=== PATIENT | female | born 1985 | race Caucasian/White ===

== ENCOUNTER 2024-12-14 04:27 | Emergency (ER) | payer OTHER, SELFPAY ==
[2024-12-14 04:28] VITALS: BP 94/76
[2024-12-14 04:53] LABS: % Basophils 0.1 % (0-2); % Eosinophils 1.1 % (0-6); % Immature Granulocytes 0.4 % (0-0.5); % Monocytes 5.1 % (1.7-9.3); % Neutrophils 77.3 % (42.2-75.2); Absolute Eosinophils 0.1 10^3/uL (0-0.7); Absolute Lymphocytes 1.4 10^3/uL (1.2-3.4); Absolute Monocytes 0.4 10^3/uL (0.1-0.6); Absolute Neutrophils 6.6 10^3/uL (1.4-6.5); Hematocrit 38.5 % (37.0-47.0); Hemoglobin 13.3 g/dL (12.0-16.0); Mean Corp Hgb Conc. 34.5 g/dL (33.0-37.0); Mean Corpuscular Hgb 32.6 pg (27.0-31.0); Mean Corpuscular Volume 94.4 fL (81.0-99.0); Mean Platelet Volume 9.8 fL (7.4-10.4); Nucleated Red Blood Cells % 0 %; Platelet Count 244 10^3/uL (130-400); Red Blood Cell Count 4.08 10^6/uL (4.20-5.40); Red Cell Dist. Width 12.6 % (11.5-14.5); White Blood Cell Count 8.5 10^3/uL (4.8-10.8)
[2024-12-14 05:10] LABS: HCG, Serum Qualitative Screen Negative
[2024-12-14 05:18] LABS: ALT (SGPT) 16 U/L (0-35); AST (SGOT) 20 U/L (14-36); Alkaline Phosphatase 42 U/L (38-126); Blood Urea Nitrogen 5 mg/dl (7-17); Calcium 9.7 mg/dl (8.4-10.2); Carbon Dioxide 26 mmol/L (22-30); Chloride 102 mmol/L (98-107); Glucose 131 mg/dl (70-99); Lipase 34 U/L (23-300); Potassium 4.1 mmol/L (3.5-5.1); Sodium 134 mmol/L (135-145); Total Bilirubin 1.2 mg/dl (0.2-1.3); Total Protein 6.8 g/dl (6.3-8.2); eGFR > 60.00
[2024-12-14 05:54] VITALS: BP 109/74
[2024-12-14 06:00] VITALS: BMI 22.8
--- NOTE | 2024-12-14 06:11 | EDRN ---
Pt has had 24 hours of constant abdominal pain associated with nausea and chills. Pt says she tried to make herself vomit but nothing came up. Pt had a small BM in past 24 hours, no diarrhea. Pt denies cp, sob, fever/cough, ill contacts, urinary
symptoms, weakness, dizziness, Pt took Tums couple times and says it did not help her pain.
[2024-12-14 06:23] LABS: Urine Albumin Negative (Neg - Trace); Urine Bilirubin Negative (Negative); Urine Character Clear (Clear); Urine Color Yellow; Urine Glucose Negative (Negative); Urine Ketone Negative (Negative); Urine Leukocyte 1+ (Negative); Urine Nitrite Negative (Negative); Urine Occult Blood Negative (Negative); Urine Specific Gravity 1.005 (<1.030); Urine Urobilinogen Negative (Neg - 1+); Urine pH 6.5 (5.0-9.0)
[2024-12-14 06:37] LABS: Urine Red Blood Cell 0-2 /HPF (0-2); Urine Squamous Cell 16-20 /LPF (Few)
[2024-12-14 06:38] LABS: Urine White Cell 0-2 /HPF (0-5)
--- NOTE | 2024-12-14 07:30 | ED.GENMED ---
History of Present Illness
General
Chief Complaint: Abdominal Pain
Source: patient
Time Seen by Provider: 12/14/24 07:06
History of Present Illness
History of Present Illness:
39-year-old female with a history of interstitial cystitis presenting to the emergency department for evaluation of generalized abdominal discomfort that started around 5 AM yesterday, constant, sharp burning sensation, nonradiating, unrelieved with
Tums. Patient states symptoms are associated with mild nausea but no vomiting or bowel changes. Patient states she has never had symptoms like this before. She notes that the pain is very different than her typical interstitial cystitis flares.
She denies any fevers, chills, rigors or any other symptoms. Surgical history was noncontributory. Patient states she is unsure of her last menstrual period as she has an IUD but does note that she had very faint spotting 2 days ago which is a
little bit abnormal for her. No other concerns presently. Patient did not take anything yet this morning for her symptoms.
Past History
Past History
ED Past Medical History: Other (Interstitial cystitis)
ED Past Surgical History: Other
Social History
Tobacco: Non-smoker
Alcohol: Occasional
Drug: None
Personal:
Living: with family
Review of Systems
Review of Systems
All Other Systems: ROS reviewed and negative except as documented in HPI and ROS
Phy Exam
Physical Exam
Physical Exam:
GENERAL: Alert , in no apparent distress but does look somewhat uncomfortable
EYE: clear conjunctiva b/l
HEAD: NCAT
ENT: mmm.
CARDIAC: Regular rate and rhythm .
LUNGS: Clear breath sounds bilaterally, no acute respiratory distress, no wheezes/rales/rhonchi
ABDOMEN: Soft, without focal tenderness, no r/g, no cvat, negative Mccurdy sign, no tenderness at McBurney's point
NEUROLOGICAL: Alert and oriented
SKIN: Warm and dry, skin intact.
MUSCULOSKELETAL: well perfused.
PSYCH: Normal and appropriate interaction.
Scores
Heart Failure Risk
Heart Failure Risk Score: Not Applicable
Heart Score for Chest Pain Patients
STEMI patient?: Not applicable
Withdrawal Assessment of Alcohol
Withdrawal Assessment Completed?: Not applicable
Course
Orders/Labs/Results
Orders:
Orders
12/14/24 04:33
Test Result ONCE
12/14/24 04:45
Complete Blood Count/With Diff Urgent
Comprehensive Metabolic Panel Urgent
HCG, Serum Qualitative Screen Urgent
Lipase Urgent
12/14/24 06:09
Urinalysis Reflex To Culture Urgent
Date Specimen was Collected: 12/14/24
Time Specimen was Collected: 06:06
Urine Microscopic Reflex Cult Urgent
Urine Culture Urgent
ABA Source: U
Specimen Description:
Date Specimen was Collected: 12/14/24
Time Specimen was Collected: 06:06
12/14/24 07:23
Iohexol [Omnipaque] See Protocol PO NOW STA
Ketorolac [Toradol] 30 mg IV NOW STA
Ondansetron Injectable [Zofran] 4 mg IV NOW STA
12/14/24 07:24
CT Abd/pel W Iv And Oral Contr Urgent
Comment:
Reason For Exam: generalized abd pain
Abnormal Lab Results
12/14/24 12/14/24
04:45 06:09
RBC 4.08 L 10^6/uL
(4.20-5.40)
MCH 32.6 H pg
(27.0-31.0)
Absolute Neuts (auto) 6.6 H 10^3/uL
(1.4-6.5)
Neutrophils % 77.3 H %
(42.2-75.2)
Lymphocytes % 16.0 L %
(20.5-51.1)
Sodium 134 L mmol/L
(135-145)
BUN 5 L mg/dl
(7-17)
Creatinine 0.5 L mg/dL
(0.6-1.0)
Glucose 131 H mg/dl
(70-99)
Leukocyte Esterase Rfl 1+ A
(Negative)
12/14/24 04:45
12/14/24 04:45
Vital Signs
Initial and Last Documented VS:
Initial Vital Signs
Temp Pulse Resp BP Pulse Ox
98.4 F 68 20 94/76 100
12/14/24 04:28 12/14/24 04:28 12/14/24 04:28 12/14/24 04:28 12/14/24 04:28
Last Documented Vital Signs
Temp Pulse Resp BP Pulse Ox
98.4 F 72 18 127/70 98
12/14/24 04:28 12/14/24 11:04 12/14/24 11:04 12/14/24 11:04 12/14/24 11:04
MDM/Problems Addressed
Differential Diagnosis Includes:
GERD/gastritis, gastroenteritis/colitis/enteritis, appendicitis, less concern for biliary colic/cholecystitis, less concern for given IUD in place, endometriosis, ovarian cyst
MDM/Problems Addressed:
39-year-old female presenting to the ER for generalized abdominal pain that started around 5 AM yesterday and constant into today. No fevers, no urinary symptoms or bowel changes. No relief with Tums. Labs initiated on arrival which are all
reassuring. Urinalysis negative for signs of UTI, test negative. Will obtain CT scan given the generalized nature of the pain. Toradol and Zofran for symptomatic relief. Reassessment following
*Radiology
Radiology exam reviewed: radiology read reviewed
*Pulse Oximetry
Patient hypoxic: no
*Critical Care Note
Total Time (30-74mins, 75-104mins- exclusive of procedures): Not Applicable
Comment
Comment:
9:15 AM: Patient noting mild improvement following Toradol and Zofran. She declines any further medications. CT pending.
Patient Management
Escalation/DeEscalation of care consider admission/obs:
Patient CT scan without any acute emergent intra-abdominal pathologies. Advised Motrin/Tylenol, heating pad as needed for pain. Prescription for Bentyl sent to pharmacy. Close follow-up with primary care provider. Aware of return precautions.
ED Attending Note
-
Portions of this chart may have been created with voice recognition software.� Occasional wrong word or��sound alike� substitutions may have occurred due to the inherent limitations of voice recognition software.
Discharge Plan
Departure
Patient Disposition: Home (Routine Discharge)
Date of Disposition: 12/14/24
Time of Disposition: 10:51
Patient with high blood pressure during this ER visit?: No
Discharge Problem:
Abdominal pain
Instructions: Abdominal Pain
Prescriptions:
New
dicyclomine 20 mg tablet
20 mg PO BID Qty: 15 0RF
No Action
amitriptyline 10 mg Tablet
5 mg PO DAILY
Vitamin D3
2 gummy PO DAILY
aloe vera
3 cap PO DAILY
Marshmallow Root
2 cap PO DAILY
Referrals:
Megan Kenny, [Family Provider] -
Interventions
Interventions:
*Risk Screen - Suicide Last Done: 12/14/24 04:28
*General Assessment Last Done: 12/14/24 06:00
*Neglect/Abuse Screening Last Done: 12/14/24 04:28
*ED- Fall Risk Assessment Last Done: 12/14/24 06:00
*ED COVID-19 Vaccine History Last Done: 12/14/24 06:00
*Nursing Disposition Last Done: 12/14/24 11:04
MZ-Lvdytj-Ivwcdzinzu Assessment Last Done: 12/14/24 06:00
Discharge Date and Time
Discharge Date/Time: 12/14/24 11:06
Print Language: CITIZEN [place]
[2024-12-14] MEDS: TORADOL 30 MG IV (07:48)
[2024-12-14] MEDS: OMNIPAQUE 50 ML PO (07:48)
[2024-12-14] MEDS: ZOFRAN 4 MG IV (07:48)
[2024-12-14 11:04] VITALS: BP 127/70
== END 2024-12-14 11:06 | disposition home or self-care (01) ==
LOC: EMR 04:27
PROVIDERS: Emergency Medicine; EMERGENCY PHYSICIAN Emergency Medicine; FAMILY PHYSICIAN Family Medicine
DX: R10.84 Generalized abdominal pain (principal); R11.0 Nausea; N30.10 Interstitial cystitis (chronic) without hematuria; Z97.5 Presence of (intrauterine) contraceptive device
CPT/HCPCS: 99284; 96375; 96374; 74177; 80053; 81003; 81015; 83690; 84703; 85025; 87086; Q9967